=== PATIENT | female | born 2000 | race Asian ===

== ENCOUNTER 2021-12-16 16:47 | Emergency (ER) | payer OTHER ==
[2021-12-16 17:08] VITALS: BP 108/72; PULSE 92; RESP 17; TEMP 98.2; BMI 24.2
== END 2021-12-16 17:39 | disposition home or self-care (01) ==
LOC: JERFT 16:47
DX: H66.92 Otitis media, unspecified, left ear (principal)
CPT/HCPCS: 99283-25

== ENCOUNTER 2022-01-12 14:07 | Emergency (ER) | payer OTHER ==
[2022-01-12 14:13] VITALS: BP 108/68; PULSE 76; RESP 18; TEMP 98.2; BMI 24.2
== END 2022-01-12 15:34 | disposition home or self-care (01) ==
LOC: JERFT 14:07
DX: H93.8X2 Other specified disorders of left ear (principal)
CPT/HCPCS: 99281-25